=== PATIENT | female | born 2000 | race Two or more races ===

== ENCOUNTER 2021-06-26 10:49 | Emergency (ER) | payer OTHER ==
[~2021-06-26] VITALS: Ht 154.9 cm; Wt 56.8 kg
[2021-06-26 10:51] VITALS: BP 112/70
[2021-06-26] MEDS ORDERED: IRON1TAB2 PO (10:58)
[2021-06-26 12:18] LABS: BASO % 0.5 % (0.0-1.0); EOS # 0.1 10^3/uL (0.0-0.5); EOS % 1.7 % (0.0-3.0); HEMATOCRIT 38.3 % (36.0-47.0); HEMOGLOBIN 12.4 g/dl (12.0-15.5); LYMPH # 1.8 10^3/uL (1.5-5.0); LYMPH % 28.7 % (24.0-44.0); MEAN CORPUSCULAR HEMOGLOBIN 24.7 pg (27.0-33.0); MEAN CORPUSCULAR HGB CONC 32.4 g/dl (32.0-36.5); MEAN CORPUSCULAR VOLUME 76.1 fl (80.0-96.0); MONO # 0.5 10^3/uL (0.0-0.8); MONO % 7.1 % (2.0-8.0); NEUTROPHILS # 3.9 10^3/uL (1.5-8.5); NEUTROPHILS % 61.5 % (36.0-66.0); PLATELET COUNT, AUTOMATED 300 10^3/uL (150-450); RED BLOOD COUNT 5.03 10^6/uL (4.00-5.40); WHITE BLOOD COUNT 6.3 10^3/uL (4.0-10.0)
[2021-06-26 13:38] LABS: BLOOD UREA NITROGEN 5 MG/DL (7-18); CALCIUM LEVEL 8.7 MG/DL (8.5-10.1); CARBON DIOXIDE LEVEL 26 MEQ/L (21-32); CHLORIDE LEVEL 108 MEQ/L (98-107); CREATININE FOR GFR 0.51 MG/DL (0.55-1.30); GLUCOSE, FASTING 84 MG/DL (70-100); HCG, SERUM QUANTITATIVE 37018 MIU/ML; POTASSIUM SERUM 3.8 MEQ/L (3.5-5.1); SODIUM LEVEL 138 MEQ/L (136-145)
== END 2021-06-26 15:45 | disposition home or self-care (01) ==
LOC: M ED 10:49
DX: O26.892 Other specified pregnancy related conditions, second trimester (principal); R10.2 Pelvic and perineal pain; O46.92 Antepartum hemorrhage, unspecified, second trimester; Z3A.17 17 weeks gestation of pregnancy

== ENCOUNTER 2021-11-12 13:44 | Inpatient (IN) | payer OTHER ==
[~2021-11-12] VITALS: Ht 154.9 cm; Wt 66.1 kg
[~2021-11-12 13:44] MED LIST: IRON1TAB2 PO
[2021-11-12] MEDS ORDERED: METHYLERGONOVINE MALEATE 0.2 MG/ML VIAL (J2210) IM PRN (14:35)
[2021-11-12] MEDS ORDERED: TRANEXAMIC ACID INJection 1,000 MG in NS 100 ML IV PRN (14:35)
[2021-11-12] MEDS ORDERED: OXYTOCIN DRIP 30 UNITS in IV 1 EA IV PRN ×6 (14:35)
[2021-11-12] MEDS ORDERED: OXYTOCIN INJ 10 UNITS/ML VIAL (J2590) IV PRN (14:35)
[2021-11-12] MEDS ORDERED: PENICILLIN G POTASSIUM IV 5 MU in D5W MINI-BAG PLUS 100 ML IV STA (14:35)
[2021-11-12] MEDS ORDERED: LACTATED RINGER'S 1000 ML IV STA (14:35)
[2021-11-12] MEDS ORDERED: CARBOPROST TROMETHAMINE 250 MCG/ML AMP IM PRN (14:35)
[2021-11-12] MEDS ORDERED: LIDOCAINE 1% MDV 20ML VIAL INFIL PRN (14:35)
[2021-11-12] MEDS ORDERED: OXYTOCIN INJ 10 UNITS/ML VIAL (J2590) IM PRN (14:35)
[2021-11-12 15:16] LABS: HEMATOCRIT 31.9 % (36.0-47.0); MEAN CORPUSCULAR HEMOGLOBIN 22.8 pg (27.0-33.0); MEAN CORPUSCULAR HGB CONC 31.3 g/dl (32.0-36.5); MEAN CORPUSCULAR VOLUME 72.7 fl (80.0-96.0); PLATELET COUNT, AUTOMATED 273 10^3/uL (150-450); RED BLOOD COUNT 4.39 10^6/uL (4.00-5.40); WHITE BLOOD COUNT 8.2 10^3/uL (4.0-10.0)
[2021-11-12] MEDS ORDERED: DIBUCAINE 1% OINTMENT 30GM TOP PRN (18:10)
[2021-11-12] MEDS ORDERED: METHYLERGONOVINE MALEATE 0.2 MG TAB PO PRN (18:10)
[2021-11-12] MEDS ORDERED: IBUPROFEN 600MG TAB PO PRN (18:10)
[2021-11-12] MEDS ORDERED: ACETAMINOPHEN TAB 650MG DOSE (2X325MG) PO PRN (18:10)
[2021-11-12] MEDS ORDERED: ACETAMINOPHEN 500 MG TAB PO PRN (18:10)
[2021-11-12] MEDS ORDERED: ONDANSETRON 4MG/2ML VIAL IV PRN (18:10)
[2021-11-12] MEDS ORDERED: OXYTOCIN DRIP 30 UNITS in IV 1 EA IV SCH ×4 (18:10)
[2021-11-12] MEDS: LR 1,000 ML IV SCH (18:10)
[2021-11-12] MEDS ORDERED: ANUSOL HC CREAM 30GM TOP PRN (18:10)
[2021-11-12] MEDS ORDERED: RHOGAM 300 MCG (1500 IU) INJ (J2790) IM SCH (18:10)
[2021-11-12] MEDS ORDERED: PENICILLIN G POTASSIUM IV 2.5 MU in IV 1 EA IV SCH (19:00)
[2021-11-12 19:25] VITALS: BP 109/66
[2021-11-12 20:00] VITALS: BP 107/53
[2021-11-12] MEDS: IBUPROFEN 800 MG TAB PO PRN (20:00)
[2021-11-12] MEDS: DOCUSATE SODIUM 100MG CAPSULE PO SCH (21:00)
[2021-11-13] MEDS: LR 1,000 ML IV SCH (02:10)
[2021-11-13 05:41] VITALS: BP 98/54
[2021-11-13] MEDS: DOCUSATE SODIUM 100MG CAPSULE PO SCH ×2 (08:03→20:48)
[2021-11-13] MEDS: IBUPROFEN 800 MG TAB PO PRN ×2 (08:04→19:34)
[2021-11-13] MEDS: PRENATAL VITAMINS CHEWABLE TABLET PO SCH (08:04)
[2021-11-13 18:00] VITALS: BP 95/49
[2021-11-14 05:30] VITALS: BP 89/50
[2021-11-14] MEDS ORDERED: ACET-683 PO (06:34)
[2021-11-14] MEDS ORDERED: IBUP80TA PO (06:34)
[2021-11-14] MEDS: PRENATAL VITAMINS CHEWABLE TABLET PO SCH (08:18)
[2021-11-14] MEDS: DOCUSATE SODIUM 100MG CAPSULE PO SCH (08:18)
[2021-11-14] MEDS ORDERED: MEASLES,MUMPS,RUBELLA VACCINE INJ (MMR-II) (90707) SC.IMMUN ONE (09:00)
== END 2021-11-14 12:05 | disposition home or self-care (01) | DRG 805 ==
LOC: M LDO 13:44 → M LDI 14:32 → M OBS 20:23
PROVIDERS: ADMIT Obstetrics & Gynecology; ATTEND Obstetrics & Gynecology
PROC: 10E0XZZ Delivery of Products of Conception, External Approach (ICD-10-PCS; principal; 2021-11-12)
PROC: 0KQM0ZZ Repair Perineum Muscle, Open Approach (ICD-10-PCS; 2021-11-12)
PROC: 10907ZC Drainage of Amniotic Fluid, Therapeutic from Products of Conception, Via Natural or Artificial Opening (ICD-10-PCS; 2021-11-12)
DX: O69.1XX0 Labor and delivery complicated by cord around neck, with compression, not applicable or unspecified (principal); Z37.0 Single live birth; O60.14X0 Preterm labor third trimester with preterm delivery third trimester, not applicable or unspecified; O70.1 Second degree perineal laceration during delivery; Z3A.36 36 weeks gestation of pregnancy; O99.824 Streptococcus B carrier state complicating childbirth